=== PATIENT | female | born 1965 ===

== ENCOUNTER 2019-12-18 15:15 | Outpatient (RCR) | payer OTHER, SELFPAY ==
[2019-11-23 12:38] VITALS: BP_SYST 90
--- NOTE | 2019-11-23 13:34 | PTOPEVAL ---
Thank you for referring this patient to [facility]. Please review, sign, date and return this plan of care CLAUDIA. Pt seen for initial evaluation to address impairments related to left shoulder impingement syndrome. She demonstrates decreased shoulder motion, decrease strength, increased pain and poor posture with scapulothoracic/GH movement pattern. Cont PT 2x/wk x 6 wk. I agree with and certify that the following plan of care is medically necessary. Referring Physician Date Attending Provider: PHYSICIAN NOT ON STAFF Referring Provider: Dr. Junior Roberts MD *PT Outpatient Evaluation Start: 11/23/19 12:21 Freq: Status: Active Protocol: Document 11/23/19 12:38 MAUREEN (Rec: 11/23/19 13:31 [facility] [id number]) Therapy Assessment Status Assessment Status Assessment Status Evaluation Outpatient Past Medical History Neurological History Hx Migraine Yes Cardiovascular History Hx Cardiac Disorders No Significant History Gastrointestinal History Hx Other Gastrointestinal Disorders Yes: weight gain Musculoskeletal History Hx Arthritis Yes: left knee Hx Orthopedic Surgery Yes: RTC repair 2006 Hx Other Musculoskeletal Disorders Yes: fluid removal of left knee, dislocation patella 2010 Endocrine History Hx Diabetes Yes: diet controlled Psychosocial History Hx Anxiety Yes: due to her job Pain History Has Past Pain Affected Your Daily Life Yes Evaluation Information Problem Diagnosis left shoulder impingement Onset April 2018 Cause previous Subjective Information Reports she had injured her Query Text:As Reported By Patient/ shoulder 2006, then had Family surgery of RTC repair. She reinjuried the shoulder 04/27. She was lifting light weights of 3#. She is unsure of which motion caused the injury . She reports she is unable to use the left UE with any activities. She is unable to perform lifting, reaching and ADL's with the left UE. She is able to isabell the pain only if using the naproxine. She is not performing her HEP, she is not motivted to perform her exercise at home. Diagnostic Tests X-Rays For This Problem Yes: unsure of results Previous Treatments Previous Treatments For This Problem yes, poor compliance with attending therapy. Prior Level of Function Activit
[2019-12-18 15:14] VITALS: BP_SYST 90
--- NOTE | 2019-12-18 17:04 | PTOPEVAL ---
Thank you for referring this patient to [facility]. Please review, sign, date and return this plan of care CLAUDIA. Pt has received 4 therapy treatment to address her left shoulder impingement and pain impairments. She is progressing slowly towards her therapy goals. Her UE function and progression is limited by her continued pain. She would benefit from additional skilled therapy to address therapy goals, improve UE function and progress HEP. Recommend 2x/wk x 4 wk of additional therapy. I agree with and certify that the following plan of care is medically necessary. Referring Physician Date Attending Provider: PHYSICIAN NOT ON STAFF Referring Provider: Dr. Junior Roberts MD *PT Outpatient Re-Evaluation Start: 11/23/19 12:21 Freq: Status: Active Protocol: Document 12/18/19 15:14 MAUREEN (Rec: 12/18/19 16:06 MAUREEN [id number]) Therapy Assessment Status Assessment Status Assessment Status Re-evaluation Re-Evaluation Information Problem Diagnosis left shoulder impingement Onset April 2018 Cause previous Additional Evaluation Detail Reports she had injured her shoulder 2006, then had surgery of RTC repair. She reinjuried the shoulder 04/27. She was lifting light weights of 3#. She is unsure of which motion caused the injury . Subjective Information She performed her HEP 3x/wk. Query Text:As Reported By Patient/ She cont to have pain with her Family HEP. She reports increased pain and limitation with reaching activities in all directions. She requires assistance with ADL's due to pain. She was able to perform 5# elbow and wrist ex at home without increased pain. Pain Assessment Timing of Pain Assessment Timing of Pain Assessment Pre-Treatment Pain Scale Pain Scale Used Numeric (1 - 10) Self Report Pain Assessment Left Shoulder(s) Reported Pain Level 7 Pain Description Aching,Soreness,Stabbing, Tender on Palpation Pain Frequency Continuous Current Pain Intensity 7 Lowest Pain Intensity 7 Greatest Pain Intensity 9 Pain Aggravating Factors Exercise/Activity,Lifting Pain Behaviors Anxious Pain Score Pain Score 7: Self Report Upper Extremity Range of Motion Scapular/ Shoulder Range of Motion Left Scapular: Retraction Hypo
--- NOTE | 2019-12-26 10:47 | PCPTNOTE ---
Patient called & cancelled scheduled appointment this date and for next 3 wks due to Cornavirus status. She is also requesting to change therapist. Will contact pt due to limitations with POC and insurance restrictions.
--- NOTE | 2020-01-09 15:23 | PCPTNOTE ---
pt did not show for today's appt;
--- NOTE | 2020-01-16 11:38 | PCPTNOTE ---
pt did not show for today's reeval
--- NOTE | 2020-01-26 15:59 | PCPTNOTE ---
PHYSICAL THERAPY DISCHARGE 01-26-2020 Attending Provider: Dr. Junior Roberts Patient:Lisseth Clancy Date of :1965 Murray Clancy has canceled her PT treatments for her L shoulder impingement, due to the COVID 19 pandemic. Her last PT session was December 08. The goals were not addressed. Thank you for referring Lisseth to [facility]. Please review, sign, date and return this discharge summary CLAUDIA. I have been updated about the patient's current status and I agree with discharge from the above service at this time. Referring Physician Date
== END 2020-01-29 11:22 | disposition home or self-care (01) ==
LOC: ANHPT 15:15
DX: M75.42 Impingement syndrome of left shoulder (principal)
CPT/HCPCS: 97110; 97140; 97162

== ENCOUNTER 2020-07-11 13:30 | Outpatient (RCR) | payer OTHER, SELFPAY ==
[2020-06-13 09:54] VITALS: BP_SYST 170
--- NOTE | 2020-06-13 11:10 | PTOPEVAL ---
Thank you for referring Lisseth Clancy to [facility].? Pt has been referred to therapy to address left shoulder and left sciatica impairments. The patient is scheduled to be seen for therapy? 2-3 x/week for 6 weeks. Please review, sign, date and return this plan of care CLAUDIA. I agree with and certify that the following plan of care is medically necessary. Referring Physician Date Admitting Provider: Attending Provider: Marisel William, *PT Outpatient Evaluation Start: 06/13/20 09:55 Freq: Status: Active Protocol: Document 06/13/20 09:54 MAUREEN (Rec: 06/13/20 10:56 MAUREEN [id number]) Therapy Assessment Status Assessment Status Assessment Status Evaluation Outpatient Past Medical History Neurological History Hx Migraine Yes Cardiovascular History Hx Cardiac Disorders No Significant History Gastrointestinal History Hx Other Gastrointestinal Disorders Yes: weight gain Musculoskeletal History Hx Arthritis Yes: left knee Hx Orthopedic Surgery Yes: RTC repair 2006 Hx Other Musculoskeletal Disorders Yes: fluid removal of left knee, dislocation patella 2010 Endocrine History Hx Diabetes Yes: diet controlled Psychosocial History Hx Anxiety Yes: due to her job Pain History Has Past Pain Affected Your Daily Life Yes Evaluation Information Problem Diagnosis left shoulder impingement and left sciatic nerve pain Onset 04/27- shoulder, 1 1/2 yrs ago for back Cause lifting Additional Evaluation Detail pt has received previous bouts of therapy to address shoulder and back. Subjective Information . She reports her left Query Text:As Reported By Patient/ shoulder pain started when she Family was lifting light weights. She does not know what caused her back pain. States her shoulder pain is constantly a 7-9/10 and back a 5/10-9/10 at rest or with activities. 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 She has increased back pain with standing, walking, or sitting. She is able to isabell walking her dogs 1 block, but no able to isabell daily. She attempts to walk 5x/wk. She is able to isabell
--- NOTE | 2020-07-05 14:31 | PCPTNOTE ---
Patient called & cancelled scheduled appointment this date due to headache.
--- NOTE | 2020-07-11 16:31 | PTOPEVAL ---
Thank you for referring Lisseth Clancy to [facility].? The patient is scheduled to be seen for therapy? 2 x/week for 4-6 weeks. Please review, sign, date and return this plan of care CLAUDIA. I agree with and certify that the following plan of care is medically necessary. Referring Physician Date Attending Provider: Marisel Willima, *PT Outpatient Evaluation Start: 06/13/20 09:55 Freq: Status: Active Protocol: Document 07/11/20 13:30 CAP (Rec: 07/11/20 14:24 CAP [email or web address]) Therapy Assessment Status Assessment Status Assessment Status Re-evaluation Evaluation Information Problem Diagnosis left shoulder impingement and left sciatic nerve pain Onset 04/27- shoulder, 1 1/2 yrs ago for back Cause lifting Additional Evaluation Detail pt has received previous bouts of therapy to address shoulder and back. She reports her left shoulder pain started when she was lifting light weights. She does not know what caused her back pain. She has received 2 injection in her left shoulder with most recent injection 06/10/20. Subjective Information States her shoulder pain and Query Text:As Reported By Patient/ back pain are constant with Family moderate intensity. Never goes below moderate intensity. 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 States the back and shoulder pain limit all her isabell with daily act. She has increased back pain with standing, walking, or sitting. She is able to isabell walking her dogs 2 block. The freq is not consistently, maybe 3-4x/wk, but no able to isabell daily. She helps take care of her grandkids. She is able to the lift the , 15#, with no changes in pain. She has slightly improved isabell
--- NOTE | 2020-08-12 12:52 | PCPTNOTE ---
Admitting Provider: Attending Provider: Marisel WilliamMD Patient:Lisseth Clancy Date of :1965 Discharge Noted Patient has not returned for any further treatments since 07/11/2020, therefore she will be discharged at this time. Patient?s initial visit was on 06/13/2020 10:00 and she had a total of 6 visits with 6 of her appointments cancelled. The goals have been not met due to limited therapy visits attended. Thank you for referring this patient to [facility]. Please review, sign, date and return this discharge summary CLAUDIA. I have been updated about the patient's current status and I agree with discharge from the above service at this time. Referring Physician Date
== END 2020-08-13 15:29 | disposition home or self-care (01) ==
LOC: ANHPT 13:30
PROVIDERS: Visit Provider Family Medicine
DX: M54.32 Sciatica, left side (principal); M75.42 Impingement syndrome of left shoulder
CPT/HCPCS: 97110; 97163